=== PATIENT | female | born 1935 | race Caucasian/White ===

== ENCOUNTER 2020-10-30 12:40 | Observation (INO) | payer MEDICARE, OTHER, SELFPAY ==
[2020-10-30] VITALS (12 sets, daily range): BP systolic 94–116; BP diastolic 42–61; PULSE 65–77; RESP 14–27; TEMP 36.6–36.9; O2SAT 92–99; BMI 26.6
--- NOTE | ~2020-10-30 | US_ITS ---
EXAMINATION: US venous doppler [facility] DATE: 10/31/2020 10:50 INDICATION: Right-sided chest pain post fall. Unable to obtain pulmonary embolism protocol study due to contrast allergy. Elevated d-dimer. TECHNIQUE: Grayscale ultrasound images without and with compression and Doppler ultrasound images of the bilateral lower extremity veins were obtained. COMPARISON: None. FINDINGS: The visualized portions of right common femoral vein, profunda (deep) femoral vein, femoral vein, pop liteal vein, posterior tibial veins, peroneal veins, gastrocnemius vein and greater saphenous vein ou tflow are patent. The visualized portions of left common femoral vein, profunda femoral vein, femoral vein, popliteal v ein, posterior tibial veins, peroneal veins, gastrocnemius vein and greater saphenous vein outflow ar e patent. IMPRESSION: 1. No deep venous thrombosis in either lower limb. Reviewed, dictated and finalized at location A. A BAKER
--- NOTE | ~2020-10-30 | XR_ITS ---
EXAMINATION: XR knee RT min 4V DATE: 10/30/2020 13:32 INDICATION: Right knee pain and bruising post fall TECHNIQUE: Anteroposterior, 2 oblique and crosstable lateral views of the right knee were obtained COMPARISON: None. FINDINGS: Alignment is normal. No fracture. Chondrocalcinosis in all 3 compartments of the knee. Joint spaces appear otherwise unremarkable on nonweightbearing imaging. No joint effusion/layering lipohemarthrosi s. Multiple small round calcifications in the subcutaneous tissues anteromedial to the proximal tibia most likely representing phleboliths. Soft tissues are otherwise unremarkable. IMPRESSION: 1. No right knee joint effusion or acute osseous abnormality. 2. Prominent chondrocalcinosis throughout the right knee. Reviewed, dictated and finalized at location A. CHLORIDE OPERATOR
--- NOTE | ~2020-10-30 | NM_ITS ---
EXAMINATION: NM pulmonary perfusion EXAM DATE: 10/30/2020 16:21 INDICATION: contrast allergy, concerning for pulmonary embolism. Right-sided chest pain. TECHNIQUE: A perfusion lung scan was performed. The patient was injected with 4 mCi technetium 99m M AA and imaged. Modified PIOPED 2 criteria used for interpretation of perfusion without ventilation st udy (recent chest x-ray instead for comparison). Comparison is made to prior examination from 016. Correlation was made with chest x-ray same date. FINDINGS: No confluent consolidation on chest x-ray obtained same date. Scattered subsegmental defects are agai n seen, more pronounced than on previous exam but with same distribution. Air trapping was noted on p rior ventilation scan consistent with COPD. Indeterminate probability pulmonary embolism. IMPRESSION: Indeterminate scan. Reviewed, dictated and finalized at location B. COMPANY DRIVER IMPRESSION: Indeterminate scan.
--- NOTE | ~2020-10-30 | CT_ITS ---
EXAMINATION: CT brain wo con DATE: 10/30/2020 13:20 INDICATION: Fall. Head injury. Laceration to right forehead. TECHNIQUE: Computed tomography (CT) of the head was performed without intravenous contrast. The mA wa s adjusted according to patient size. Iterative reconstruction technique was employed. Exam dose: 60 5.33 mGy-cm total exam DLP. COMPARISON: 08/18/2010 CT brain FINDINGS: Bilateral vertebral artery, basilar artery and bilateral carotid siphon and right supraclin oid internal carotid artery calcifications. There is nonspecific diminished attenuation of the subcortical and periventricular cerebral white mat ter, likely due to chronic small vessel ischemic changes. No intracranial mass lesion or hemorrhage or cerebrovascular accident is evident. There is no midline shift or mass effect. Orbital contents are unremarkable. No subdural or epidural hematoma. No fracture or bone destruction of the cranial vault. The mastoid air cells and included paranasal sinuses are normally developed and aerated. IMPRESSION: Cerebral atherosclerosis and chronic small vessel ischemic changes of cerebral white mat ter No skull fracture or acute intracranial finding Reviewed, dictated and finalized at Location A. Reviewed, dictated and finalized at location A. OR CONTROL ASSISTANT IMPRESSION: Cerebral atherosclerosis and chronic small vessel ischemic changes of cerebral white matter No skull fracture or acute intracranial finding
--- NOTE | ~2020-10-30 | XR_ITS ---
XR hip BI 2V w AP pelvis DATE: 10/30/2020 13:32 INDICATION: Right pelvic and hip pain following fall. TECHNIQUE: AP pelvis. AP and lateral views of each hip. COMPARISON: None FINDINGS: Bilateral hip joint chondrocalcinosis is noted. Moderate osteopenia. No pelvic fracture or bone destruction is detected. The pubic symphysis and sacral iliac joints are n ormally aligned. No hip fracture or dislocation, avascular necrosis or bone destruction. IMPRESSION: Osteopenia No pelvic or hip fracture Bilateral hip joint chondrocalcinosis Reviewed, dictated and finalized at location A. LE BASS PLAYER
--- NOTE | ~2020-10-30 | XR_ITS ---
XR chest 2V DATE: 10/30/2020 13:32 INDICATION: Right-sided chest pain after fall TECHNIQUE: AP and lateral views COMPARISON: 09/10/2016 2 view chest 09/30/2017 CT chest FINDINGS: Cardiomegaly. Aortic calcification, ectasia and unfolding. There is mild infiltrate or atelectasis in the left mid and lower lung zones. The right hilum appears more prominent on the current examination compared to 09/10/2016 on the AP vi ew. No pleural effusion or pulmonary vascular congestion or pneumothorax. Surgical clips overlie the right upper quadrant, consistent with cholecystectomy. Diffuse osteopenia. There is dextroscoliosis of the thoracic spine. IMPRESSION: Mild infiltrate or atelectasis in the left mid and lower lung zones Cardiomegaly Aortic atherosclerosis Right hilum appears more prominent compared to 09/10/2016. Consider CT thorax with IV contrast materi al Reviewed, dictated and finalized at location A. RMATION SYSTEMS ARCHITECT IMPRESSION: Mild infiltrate or atelectasis in the left mid and lower lung zones Cardiomegaly Aortic atherosclerosis Right hilum appears more prominent compared to 09/10/2016. Consider CT thorax w ith IV contrast material
--- NOTE | ~2020-10-30 | CT_ITS ---
EXAMINATION: CT cervical spine wo con DATE: 10/30/2020 13:20 INDICATION: Fall. Head and neck injury. Laceration to right forehead. TECHNIQUE: Computed tomography (CT) of the cervical spine was performed without intravenous contrast. Automated exposure control and iterative reconstruction technique were employed. Exam dose: 183.39 mGy-cm total exam DLP. COMPARISON: None FINDINGS: There is diffuse osteopenia. C1 and C2 are normally aligned and the odontoid process is intact. No fracture or dislocation or lock ed facet or prevertebral soft tissue swelling. 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 There is severe degenerative disc disease at C5-6. There is minimal anterolisthesis and moderate degenerative disc disease at C6-7. Extensive degenerative changes of the apophyseal joints throughout the cervical spine. Prominent uncovertebral joint spurring bilaterally at C5-6. 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 Reviewed, dictated and finalized at location A. ARCHITECT MANAGER
--- NOTE | ~2020-10-30 | CT_ITS ---
EXAMINATION: CTA chest DATE: 11/01/2020 01:07 INDICATION: Elevated d-dimer, possible lung mass TECHNIQUE: Computed tomographic angiography (CTA) of the chest was performed without and with 100 mL Omnipque-350 intravenous contrast. Maximum intensity projection 3D-reconstructions of the aorta and o ther arteries were constructed by the technologist on a separate workstation. The dose-length product (DLP) was 528.97 mGy-cm. Automated exposure control and iterative reconstruction technique were empl oyed. COMPARISON: 09/30/2017 FINDINGS: There is no aneurysm or dissection of the thoracic aorta. Calcified atherosclerosis is note d. No pulmonary embolism is identified. There are small pleural effusions, left greater than right. N o pneumothorax is identified. Cardiomegaly is noted. No suspicious lung mass is identified. There is mild dependent atelectasis. Minimal opacities are noted in the lung apices. The gallbladder is surgic ally absent. 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 Punctate calcifications in otherwise normal appearing liver and spleen likely represent healed granulomatous disease. IMPRESSION: 1. No pulmonary embolism, aortic dissection, or aortic aneurysm. 2. Small pleural effusions, left greater than right. 3. Minimal airspace opacities in the lung apices, consistent with atelectasis versus pneumonia. 4. Cardiomegaly. 5. No suspicious correlate identified for the abnormality described on chest radiograph. Reviewed, dictated and finalized at location A. DRYING MACHINE OPERATOR IMPRESSION: 1. No pulmonary embolism, aortic dissection, or aortic aneurysm. 2. Small pleural effusions, left greater than right. 3. Minimal airspace opacities in the lung apices, consistent with atelectasis v ersus pneumonia. 4. Cardiomegaly. 5. No suspicious correlate identified for the abnormality described on chest ra diograph.
--- NOTE | 2020-10-30 12:46 | ED.FALL ---
HPI - Fall General Chief Complaint: Fall Stated Complaint: FALL Time Seen by Provider: 10/30/20 12:46 Source: patient and EMS Mode of arrival: EMS Limitations: no limitations History of Present Illness HPI Narrative: Patient is an 85-year-old female who presents for evaluation after a ground-level fall. Patient states that she was sitting at a table, when she stood up to walk into the living room, states that she suddenly fell to the ground. Patient states she does not think she tripped on anything. She states she may have passed out. She states she hit her head but did not lose consciousness. Patient with a large laceration to her right forehead. She is reporting dull, aching forehead pain. She is denying neck pain. She states her was home and found her on the ground, called EMS and they helped her to stand up. Patient currently is alert and oriented to person, place, and to time. She is reporting mild headache pain. She states that she feels somewhat foggy. She reports she has had a 3-day history of left-sided chest pain that is worse when she takes a deep breath. She denies nausea or vomiting. She denies vision changes. She denies weakness or numbness. Patient is not on any anticoagulation. Patient also reporting right knee pain and bruising. Related Data Home Medications Medication Instructions Recorded Confirmed alendronate 70 mg tablet See Rx Instructions .ROUTE .COMPLEX 10/04/19 doxycycline hyclate 10/30/20 Allergies Allergy/AdvReac Type Severity Reaction Status Date / Time adhesive Allergy Unknown BANDAIDS= Verified 10/30/20 13:03 RASH codeine Allergy Unknown vomiting Verified 10/30/20 13:03 Contrast Media Allergy Unknown hives Uncoded 10/30/20 13:03 Review of Systems Review of Systems: Narrative: CONSTITUTIONAL: Denies fever, chills, or sweats. EYES: Denies visual changes ENT: Denies rhinorrhea, congestion, sore throat, or otalgia. CARDIOVASCULAR: Reports left-sided chest pain RESPIRATORY: Denies cough or dyspnea. GASTROINTESTINAL: Denies abdominal pain, nausea, vomiting, or diarrhea. GENITOURINARY: Denies dysuria or hematuria. SKIN: Denies rash or itching. MUSCULOSKELETAL: Denies back pain, joint pain, or myalgia. NEUROLOGIC: Denies headache, numbness, or weakness. COUNT INCLUDES THE [facility] Past Medical History Medical History (Updated 12/30/20 @ 15:10 by Kaylan East MD) Dementia Depression HTN (hypertension) Osteoporosis Family History Family History Sibling Asthma Mother Family history of malignant neoplasm, Onset Age: 82 Family history of kidney disease, Onset Age: 82 Social History Social History Smoking status: Never smoker Alcohol intake: never Gender identity (if verbalized by the patient): Female Exam Narrative: Exam Narrative: Nursing note and vitals reviewed. CONSTITUTIONAL: The patient appears well-developed and well-nourished. No distress. HEAD: Normocephalic, right forehead laceration, through epidermis, no palpable skull depression, minimal active bleeding EYES: PERRL, EOMI, normal conjunctiva, anicteric EARS: External ears clear bilaterally, no hemotympanum MOUTH: OP clear, no erythema, exudates NECK: midline trachea, supple, FROM. No midline cervical spinal tenderness. CARDIOVASCULAR: Normal rate, regular rhythm, normal heart sounds and intact distal pulses. No murmurs, rubs, gallops. PULMONARY: Effort normal and breath sounds normal. No respiratory distress. The patient has no wheezes, rales, ronchi. No reproducible chest wall tenderness, crepitus or ecchymoses. ABDOMINAL: Soft. Nontender, nondistended. No palpable masses EXTREMITIES:: moving all extremities symmetrically. -RUE: No deformity. Normal ROM at shoulder, elbow, wrist, and hand. Sensation intact M/U/R. Pulse 2+. -LUE: No deformity. Normal ROM at shoulder, elbow, wrist, and hand.,
--- NOTE | 2020-10-30 13:02 | ECG_ITS ---
Measurements Intervals [place] Rate: 72 P: 29 WI: 179 QRS: -28 QRSD: 93 T: 55 QT: 387 QTc: 426 Interpretive Statements SINUS RHYTHM LEFT VENTRICULAR HYPERTROPHY WITH ST-T CHANGE BORDERLINE R WAVE PROGRESSION, ANTERIOR LEADS BORDERLINE T WAVE ABNORMALITY- LATERAL LEADS BORDERLINE ECG Electronically Signed On 10-30-2020 14:32:20 HEALTHCARE MARKET CONSULTANT by Viet Licea D.O.
[2020-10-30 13:13] LABS: Basophils Percent Auto 0.2 % (0.2-1.2); Eosinophils Absolute Auto 0.1 K/mm3 (0-0.3); Eosinophils Percent Auto 0.7 % (0-4.4); Hematocrit 34.2 % (37.0-47.0); Hemoglobin 11.4 g/dL (12.0-15.0); Immature Granulocyte Absolute 0.02 K/mm3 (0.00-0.031); Immature Granulocyte Percent A 0.2 % (0-0.5); Lymphocytes Absolute Auto 0.55 K/mm3 (0.9-3.2); Lymphocytes Percent Auto 6.6 % (18.3-44.2); Mean Corpuscular HGB Conc 33.3 g/dl (32-36); Mean Corpuscular Hemoglobin 27.7 pg (26-34); Mean Platelet Volume 11.7 fl (7.4-10.4); Monocytes Absolute Auto 0.7 K/mm3 (0.1-0.6); Monocytes Percent Auto 8.5 % (2.6-8.5); Neutrophils Percent Auto 83.8 % (45.5-73.1); Platelet Count Result 166 k/mm3 (150-375); Red Blood Count 4.12 M/mm3 (4.2-5.4); Red Cell Distribution Width 13.2 % (11.5-14.5); White Blood Count 8.4 K/mm3 (4.5-10.0)
[2020-10-30 13:25] LABS: Anion Gap 8 mmol/L (8-16); Blood Urea Nitrogen 28 mg/dL (7-17); Calcium 9.2 mg/dL (8.4-10.2); Carbon Dioxide 28 mmol/L (22-30); Chloride 101 mmol/L (98-107); Estimated CRCL calculation 29 ml/min; Estimated Glomerular Filt Rate 43; Glucose 153 mg/dL (65-105); Potassium 3.4 mmol/L (3.4-5.0); Sodium 137 mmol/L (137-145)
[2020-10-30 13:35] LABS: INR 0.9
[2020-10-30 13:36] LABS: Partial Thromboplastin Time 28.1 SECONDS (22.3-36.8); Troponin I 0.021 ng/mL (0.000-0.034)
[2020-10-30] MEDS: SODIUM CHLORIDE 0.9% IV 1,000 ML 999 ML IV CONT ×2 (13:46→15:36)
[2020-10-30] MEDS: ONDANSETRON INJ 4 MG/2 ML VIAL IV PUSH (13:46)
[2020-10-30] MEDS: TETANUS,DIPHTHERIA,AC PERTUSSIS ADULT (0.5 ML) BOOSTRIX IM (13:50)
[2020-10-30 14:06] LABS: Add Urine Microscopic? YES; Appearance Urine Clear (Clear); Bilirubin Urine Negative (Negative); Blood Urine Negative (Negative); Color Urine Yellow (Yellow); Glucose Urine UA Negative (Negative); Ketones Urine Negative (Negative); Leukocyte Esterase Ur 1+ LEU/UL (Negative); Mucus Urine Rare /lpf; Nitrate Urine Negative (Negative); Protein Urine 1+ mg/dL (Negative); RBC Urine 0-2 /hpf (0-2); Squamous Epithelial Cell Urine Few /hpf (Few)
[2020-10-30 14:11] LABS: D Dimer 2.72 ug/mL (<0.48)
--- NOTE | 2020-10-30 15:37 | PC.NURSE ---
pt refusing to take predinose. states it makes me feel like she is crawling on the ceiling, and i get mean Dr. Esat made aware.
--- NOTE | 2020-10-30 15:50 | PC.NURSE ---
Pt taken to nuclear med for lung study
--- NOTE | 2020-10-30 16:54 | ADMGEN ---
This patient, Alona Tejeda, was admitted to Medical Room 344-01. Patient/family oriented to hospital policies and general routines including ID bracelet, bed and alarms, visiting hours, pain management, procedures, bathroom and other care routines, personal items, smoking policy, room service/diet, and visiting hours. Information on how to activate the Rapid Response Team has been discussed. Patient/Family are encouraged to report perceived risks to care and to ask questions if they do not understand what they are told or what they should do.
[2020-10-30 18:48] LABS: Troponin I 0.019 ng/mL (0.000-0.034)
--- NOTE | 2020-10-30 20:30 | PM.IMHP ---
H&P: HPI History of Present Illness Date/Time: 10/31/20 20:30 Chief Complaint: Fall from ground level. Narrative: This is a very pleasant 85-year-old female with hypertension and chronic kidney disease who presented to the emergency department earlier today via EMS from home for evaluation after a fall from ground level. She was in her usual state of health when she woke this morning and not long after eating lunch she stood up to walk to the bathroom when she fell onto her right side, hitting her head and sustaining a laceration. There was no loss of consciousness or antecedent symptoms. In the emergency department she complained of a mild headache at the side of her laceration as well as some mild discomfort in the right knee. Her laceration was sutured and her brain CT showed no evidence of acute findings. With further questioning the patient mentioned intermittent left-sided pleuritic pain and there was some concern for possible pulmonary embolism as her D-dimer came back elevated. She has a contrast allergy and thus the emergency department physician wanted her admitted for premedication so we can obtain a chest CTA to rule out PE. She has no lower extremity edema, calf pain, or tenderness. No recent travel. No history of venous thromboembolism. The patient does not know what precipitated her fall today but as we chatted she mentions that over the last several years she has intermittent feelings of being pulled to one side or the other while ambulating although she denies overt vertigo. She ambulates unassisted and has been leland as of thus far to not have suffered any significant falls. She also mentions difficulties speaking, not necessarily slurred speech, more so slow and stuttering speech. Additional symptoms include intermittent horizontal diplopia, many times while watching television; right eyelid droop; and pill dysphagia. Some days she has hardly any of these symptoms ?and I feel back to my normal self.? Other days these symptoms last a majority of the day and seem to be worse with fatigue. She denies any significant muscle weakness however does note on occasion that she is so tired that she feels she cannot hold her head up straight. No significant shortness of breath however she will occasionally have dyspnea on minimal exertion. These symptoms cause her quite a bit of distress and she is tearful when discussing how it has affected her life. She has spoken with her doctor about it however it does not sound as though she has had a workup. No history of stroke, thyroid disease, or myasthenia gravis. Review of Systems Review of Systems: Narrative: Twelve systems were reviewed with pertinent positives and negatives as per HPI. No fever, chills, or sweats. No recent cold or flu symptoms. No exposure to those positive for COVID-19. She denies cough. No exertional chest pain or palpitations. She denies nausea, vomiting, and diarrhea. Reports recurrent urinary tract infections and frequently has mild dysuria. Occasional urinary incontinence. No paresthesias or focal weakness. Except as documented, all other systems were reviewed and are negative. [facility] Past Medical History Medical History (Updated 10/31/20 @ 00:50 by Mayra Rebollar PA-C) Chronic kidney disease, stage 3 Baseline creatinine is around 1.10. Depression Gastroesophageal reflux disease Hiatal hernia Hyperlipidemia Hypertension Mild dementia Osteoarthritis Osteoporosis Shingles (~2005) Surgical History Surgical History (Updated 10/31/20 @ 00:41 by Mayra Rebollar PA-C) History of bilateral breast biopsy History of cholecystectomy History of hemorrhoidectomy History of tonsillectomy Family History Family History Sibling Asthma Mother Family history of malignant neoplasm, Onset Age: 82 Family history of kidney disease, Onset Age: 82 Social History Social History (Updated
[2020-10-31] VITALS (15 sets, daily range): BP systolic 133–172; BP diastolic 57–83; PULSE 65–78; RESP 14–18; TEMP 36.4–36.6; O2SAT 95–100
--- NOTE | 2020-10-31 01:00 | ECHO_ITS ---
Patient Info Name: Alona Tejeda Age: 85 years : 1935 Gender: Female Ht: 65 in Wt: 159 lbs BSA: 1.83 m2 HR: 66 bpm BP: 156 / 65 mmHg Heart Rhythm: Sinus Rhythm Technical Quality: Fair Exam Date: 10/31/2020 9:44 AM Exam Location: [facility] Pulmonary Exam Room: 344 Patient Status: Outpatient Admit Date: 10/30/2020 Staff Ordering Physician: Mayra Rebollar PA-C Injection Molding Machine Setter: Genevieve Rogers RDCS Attending Provider: Chris Huntley MD Referring Physician: Smooth ABERNATHY; Exam Type: CA echo doppler color flow Study Info Indications - CARDIOMEGALY Complete two-dimensional, color flow and Doppler transthoracic echocardiogram is performed. Summary 1. Complete two-dimensional, color flow and Doppler transthoracic echocardiogram is performed. 2. Left ventricular systolic function is normal, estimated at 60-65%. 3. There is mildly increased left ventricular wall thickness. 4. The left ventricular diastolic function is grade I diastolic dysfunction. 5. Left atrial chamber dimension is mildly enlarged. 6. There is mild aortic valve sclerosis. 7. There is moderate mitral valve calcification. 8. There is mild mitral valve regurgitation. 9. There is mild tricuspid valve regurgitation. 10. No pulmonary hypertension, estimated pulmonary arterial systolic pressure is 37 mmHg. 11. There is mild pulmonic regurgitation. Left Ventricle Left ventricular chamber dimension is normal. Left ventricular systolic function is normal, estimated at 60-65%. There is mildly increased left ventricular wall thickness. Left ventricular septal wall motion is normal. The left ventricular diastolic function is grade I diastolic dysfunction. Right Ventricle Right ventricular chamber dimension is normal. Right ventricular systolic function is normal. Left Atria Left atrial chamber dimension is mildly enlarged. Right Atria Right atrial chamber dimension is normal. Atrial Septum Intact interatrial septum visualized by color flow imaging. Aortic Valve The aortic valve is trileaflet. There is mild aortic valve sclerosis. There is no aortic valve stenosis. There is no aortic valve regurgitation. Pulmonic Valve The pulmonic valve is normal. There is no pulmonic valve stenosis. There is mild pulmonic regurgitation. Mitral Valve There is no mitral valve stenosis. There is mild mitral valve regurgitation. There is moderate mitral valve calcification. Tricuspid Valve The tricuspid valve leaflets are normal. There is no significant tricuspid valve stenosis. There is mild tricuspid valve regurgitation. No pulmonary hypertension, estimated pulmonary arterial systolic pressure is 37 mmHg. Pericardium/Pleural The pericardium appears normal. There is no pericardial effusion. Inferior Vena Cava Normal inferior vena cava with >50% collapse upon inspiration consistent with normal right atrial pressure, 5 mmHg. Aorta The aortic root size at the sinus of Valsalva is normal. The prox ascending aorta size is normal. Left Ventricular Outflow Tract Name Value Normal LVOT 2D LVOT Diameter 2.0 cm LVOT Doppler
[2020-10-31] MEDS: predniSONE 40 MG, predniSONE 10 MG 50 MG PO ×3 (11:25→22:20)
--- NOTE | 2020-10-31 12:15 | WPDNEURCNPN ---
Assessment and Plan Assessment and plan (1) Abnormal chest x-ray: Code(s): R93.89 - Abnormal findings on diagnostic imaging of other specified body structures Status: Acute (2) Neurological symptoms: Code(s): R29.90 - Unspecified symptoms and signs involving the nervous system Status: Acute (3) Musculoskeletal chest pain: Code(s): R07.89 - Other chest pain Status: Acute (4) Elevated d-dimer: Code(s): R79.89 - Other specified abnormal findings of blood chemistry Status: Acute (5) Fall from ground level: Code(s): W18.30XA - Fall on same level, unspecified, initial encounter Status: Acute (6) Syncope: Qualifiers: Syncope type: unspecified Qualified Code(s): R55 - Syncope and collapse Code(s): R55 - Syncope and collapse Status: Acute (7) Laceration of head: Qualifiers: Encounter type: initial encounter Foreign body presence: without foreign body Location of open wound of head: other part of head Qualified Code(s): S01.81XA - Laceration without foreign body of other part of head, initial encounter Code(s): S01.91XA - Laceration without foreign body of unspecified part of head, initial encounter Status: Acute (8) Dementia: Qualifiers: Dementia type: Alzheimer's disease Alzheimer's disease onset: early-onset Dementia behavioral disturbance: without behavioral disturbance Qualified Code(s): G30.0 - Alzheimer's disease with early onset; F02.80 - Dementia in other diseases classified elsewhere without behavioral disturbance Code(s): F03.90 - Unspecified dementia without behavioral disturbance Status: Acute (9) Osteoporosis: Qualifiers: Osteoporosis type: age-related Presence of current pathological fracture: unspecified Qualified Code(s): M81.0 - Age-related osteoporosis without current pathological fracture Code(s): M81.0 - Age-related osteoporosis without current pathological fracture Status: Acute (10) HTN (hypertension): Qualifiers: Hypertension type: essential hypertension Qualified Code(s): I10 - Essential (primary) hypertension Code(s): I10 - Essential (primary) hypertension Status: Acute (11) Depression: Qualifiers: Depression Type: major depressive disorder Major depression recurrence: recurrent Active/Remission status: currently active Major depression episode severity: mild Qualified Code(s): F33.0 - Major depressive disorder, recurrent, mild Code(s): F32.9 - Major depressive disorder, single episode, unspecified Status: Acute Additional Plan treatment as planned Consult date: 10/31/20 Time Seen: 12:00 HPI: Alona Tejeda is a 85 year old female 85 years old lady has been admitted to the hospital with the complaints of fall from ground level when she was in her usual state of health, she woke up in the morning and not long after eating her lunch she stood up to walk to the bathroom when she fell onto her right side hitting her head and sustaining a laceration without becoming unconscious in the emergency room she complained of mild headache the side of her laceration and mild discomfort in the right knee. Less duration was sutured, CT scan of the head was negative, though she complained of intermittent left-sided pleuritic pain and her D-dimer came back elevated CTA could not be done because of her allergies to the dye so she needed to be medicated,. At this stage she mentions over the last several years she has intermittent feeling of being pulled to 1 side or other while ambulating without any vertigo though she has been ambulating unassisted and has not fallen as yet she also complained of mild difficulties in his speech additionally intermittent horizontal diplopia while watching TV but no associated muscle weakness or any other symptomatology. She does have ongoing history of 1. Chronic renal disease s
--- NOTE | 2020-10-31 14:38 | PM.IMPN ---
Progress Note: A&P Assessment and Plan (1) Fall from ground level: Code(s): W18.30XA - Fall on same level, unspecified, initial encounter Status: Acute Assessment and Plan: 10/31/20 14:38 Patient is 85-year-old female fell at home while trying to get up from sitting position patient landed on right side of her forehead and has a laceration, patient does suddenly fell denies any mechanical fall and denies any associated symptoms chest pain palpitation or dizziness prior fall, however patient does complaint of left-sided chest pain for last 3 days, worse with deep breath more like pleuritic pain, although patient does not have significant risk factor for PE however her D-dimer is elevated 2.72 to further evaluate patient needs CTA of the chest however patient is allergic to contact, patient has agreed to be pretreated before doing CTA tomorrow will follow, patient is a poor historian, will have a PT OT evaluate the and further recommendation to follow (2) Laceration of head: Qualifiers: Encounter type: initial encounter Foreign body presence: without foreign body Location of open wound of head: other part of head Qualified Code(s): S01.81XA - Laceration without foreign body of other part of head, initial encounter Code(s): S01.91XA - Laceration without foreign body of unspecified part of head, initial encounter Status: Acute Assessment and Plan: Patient has a laceration on right side of the for was sutured in ER, (3) Elevated d-dimer: Code(s): R79.89 - Other specified abnormal findings of blood chemistry Status: Acute Assessment and Plan: Patient with elevated D-dimer and complaint of pleuritic chest will do the CTA of the chest further evaluate (4) Musculoskeletal chest pain: Code(s): R07.89 - Other chest pain Status: Acute Assessment and Plan: Status post fall most likely musculoskeletal chest (5) Neurological symptoms: Code(s): R29.90 - Unspecified symptoms and signs involving the nervous system Status: Acute Assessment and Plan: Elderly clinically stable at the present (6) Abnormal chest x-ray: Code(s): R93.89 - Abnormal findings on diagnostic imaging of other specified body structures Status: Acute Assessment and Plan: Right hilum a patient large will do the CTA of the chest (7) Chronic kidney disease, stage 3: Code(s): N18.30 - Chronic kidney disease, stage 3 unspecified Status: Inactive Assessment and Plan: Acute on chronic most likely secondary dehydration will gently hydrate the patient (8) Hypertension: Code(s): I10 - Essential (primary) hypertension Status: Inactive (9) Depression: Qualifiers: Active/Remission status: currently active Depression Type: major depressive disorder Major depression episode severity: mild Major depression recurrence: recurrent Qualified Code(s): F33.0 - Major depressive disorder, recurrent, mild Code(s): F32.9 - Major depressive disorder, single episode, unspecified Status: Acute Assessment and Plan: Will continue home regimen (10) Mild dementia: Code(s): F03.90 - Unspecified dementia without behavioral disturbance Status: Inactive Assessment and Plan: Clinically stable. Additional Plan The patient denies antecedent symptoms prior to her fall and she is not certain as to how or why she fell. She is not technically orthostatic however blood pressures have been soft. Because of this I am going to hold her antihypertensives. She denies loss of consciousness and I was told that it was a witnessed fall. She sustained a right forehead laceration which has since been sutured. Fall precautions will be initiated. PT/OT consulted given reports of intermittent gait disturbances. A D-dimer was drawn as she reported left-sided pleuritic pain however it is clearly reproducible, musculoskeletal p
[2020-10-31] MEDS: DONEPEZIL HCL 10 MG TABLET PO (17:53)
[2020-10-31] MEDS: SERTRALINE HCL 50 MG TABLET PO (22:20)
[2020-10-31] MEDS: diphenhydrAMINE HCl INJ 50 MG/ML VIAL IV PUSH (22:20)
[2020-11-01] VITALS (12 sets, daily range): BP systolic 132–177; BP diastolic 52–79; PULSE 58–83; RESP 14–20; TEMP 36.1–36.4; O2SAT 96–98
--- NOTE | 2020-11-01 00:50 | PC.NURSE ---
Patient left room via wheelchair to CT
--- NOTE | 2020-11-01 01:12 | PC.NURSE ---
Patient returned to room from CT via wheelchair
[2020-11-01 09:56] LABS: Hematocrit 31.9 % (37.0-47.0); Hemoglobin 10.6 g/dL (12.0-15.0); Mean Corpuscular HGB Conc 33.2 g/dl (32-36); Mean Corpuscular Hemoglobin 27.5 pg (26-34); Mean Corpuscular Volume 82.6 fl (80-100); Mean Platelet Volume 11.4 fl (7.4-10.4); Platelet Count Result 180 k/mm3 (150-375); Red Blood Count 3.86 M/mm3 (4.2-5.4); White Blood Count 8.2 K/mm3 (4.5-10.0)
[2020-11-01 10:09] LABS: Potassium 3.7 mmol/L (3.4-5.0)
[2020-11-01 10:12] LABS: Blood Urea Nitrogen 29 mg/dL (7-17)
[2020-11-01 10:13] LABS: Anion Gap 10 mmol/L (8-16); Calcium 9.3 mg/dL (8.4-10.2); Carbon Dioxide 25 mmol/L (22-30); Chloride 104 mmol/L (98-107); Estimated CRCL calculation 31 ml/min; Estimated Glomerular Filt Rate 47; Glucose 184 mg/dL (65-105); Sodium 139 mmol/L (137-145)
--- NOTE | 2020-11-01 13:37 | PM.IMPN ---
Progress Note: A&P Assessment and Plan (1) Fall from ground level: Code(s): W18.30XA - Fall on same level, unspecified, initial encounter Status: Acute Assessment and Plan: 11/01/20 13:37 Patient is 85-year-old female fell at home while trying to get up from sitting position patient landed on right side of her forehead and has a laceration, patient suddenly fell denies any mechanical fall and denies any associated symptoms chest pain palpitation or dizziness prior to fall, however patient does complaint of left-sided chest pain for last 3 days prior to coming to the ER, worse with deep breath more like pleuritic pain, although patient does not have significant risk factor for PE however her D-dimer is elevated 2.72 to further evaluate patient had CTA of the chest however patient is allergic to contrast, patient has agreed to be pretreated before doing CTA, which was done on 10/31 pending result, patient is a poor historian, today appears more confused unable to provide any review of systems, will have a PT OT evaluate the and further recommendation to follow (2) Laceration of head: Qualifiers: Encounter type: initial encounter Foreign body presence: without foreign body Location of open wound of head: other part of head Qualified Code(s): S01.81XA - Laceration without foreign body of other part of head, initial encounter Code(s): S01.91XA - Laceration without foreign body of unspecified part of head, initial encounter Status: Acute Assessment and Plan: Patient has a laceration on right side of the for was sutured in ER, (3) Elevated d-dimer: Code(s): R79.89 - Other specified abnormal findings of blood chemistry Status: Acute Assessment and Plan: Patient with elevated D-dimer and complaint of pleuritic chest will do the CTA of the chest further evaluate (4) Musculoskeletal chest pain: Code(s): R07.89 - Other chest pain Status: Acute Assessment and Plan: Status post fall most likely musculoskeletal chest (5) Neurological symptoms: Code(s): R29.90 - Unspecified symptoms and signs involving the nervous system Status: Acute Assessment and Plan: Elderly clinically stable at the present (6) Abnormal chest x-ray: Code(s): R93.89 - Abnormal findings on diagnostic imaging of other specified body structures Status: Acute Assessment and Plan: Right hilum a patient large will do the CTA of the chest (7) Chronic kidney disease, stage 3: Code(s): N18.30 - Chronic kidney disease, stage 3 unspecified Status: Inactive Assessment and Plan: Acute on chronic most likely secondary dehydration will gently hydrate the patient (8) Hypertension: Code(s): I10 - Essential (primary) hypertension Status: Inactive (9) Depression: Qualifiers: Depression Type: major depressive disorder Major depression recurrence: recurrent Active/Remission status: currently active Major depression episode severity: mild Qualified Code(s): F33.0 - Major depressive disorder, recurrent, mild Code(s): F32.9 - Major depressive disorder, single episode, unspecified Status: Acute Assessment and Plan: Will continue home regimen (10) Mild dementia: Code(s): F03.90 - Unspecified dementia without behavioral disturbance Status: Inactive Assessment and Plan: Clinically stable. Subjective Date/time seen: 11/01/20 13:37 Patient is 85-year-old female fell at home while trying to get up from sitting position patient landed on right side of her forehead and has a laceration, patient suddenly fell denies any mechanical fall and denies any associated symptoms chest pain palpitation or dizziness prior to fall, however patient does complaint of left-sided chest pain for last 3 days prior to coming to the ER, worse with deep breath more like pleuritic pain, although patient does not have
[2020-11-01] MEDS: DONEPEZIL HCL 10 MG TABLET PO (16:40)
[2020-11-01] MEDS: SERTRALINE HCL 50 MG TABLET PO (20:00)
[2020-11-02] VITALS: PULSE 65
[2020-11-02 04:00] VITALS: PULSE 65
[2020-11-02 05:35] VITALS: BP 156/70; PULSE 66; RESP 16; TEMP 36.3; O2SAT 97
[2020-11-02 05:46] LABS: Hematocrit 31.9 % (37.0-47.0); Hemoglobin 10.4 g/dL (12.0-15.0); Mean Corpuscular HGB Conc 32.6 g/dl (32-36); Mean Corpuscular Volume 82.9 fl (80-100); Platelet Count Result 190 k/mm3 (150-375); Red Blood Count 3.85 M/mm3 (4.2-5.4); Red Cell Distribution Width 13.2 % (11.5-14.5); White Blood Count 9.2 K/mm3 (4.5-10.0)
[2020-11-02 06:15] LABS: Anion Gap 5 mmol/L (8-16); Blood Urea Nitrogen 32 mg/dL (7-17); Carbon Dioxide 29 mmol/L (22-30); Chloride 107 mmol/L (98-107); Estimated CRCL calculation 29 ml/min; Estimated Glomerular Filt Rate 43; Glucose 90 mg/dL (65-105); Potassium 2.9 mmol/L (3.4-5.0); Sodium 141 mmol/L (137-145)
[2020-11-02 08:00] VITALS: BP 130/78; PULSE 61
[2020-11-02 08:46] VITALS: BP 134/80
[2020-11-02 08:47] VITALS: BP 138/86
--- NOTE | 2020-11-02 11:10 | PM.DS ---
DS: Admitting Diagnosis Admitting Diagnosis Admitting Diagnosis: Fall from ground level. DS: Summary Hospital Course Reason for hospitalization: Chief Complaint: Fall from ground level. Narrative: This is a very pleasant 85-year-old female with hypertension and chronic kidney disease who presented to the emergency department earlier today via EMS from home for evaluation after a fall from ground level. She was in her usual state of health when she woke this morning and not long after eating lunch she stood up to walk to the bathroom when she fell onto her right side, hitting her head and sustaining a laceration. There was no loss of consciousness or antecedent symptoms. In the emergency department she complained of a mild headache at the side of her laceration as well as some mild discomfort in the right knee. Her laceration was sutured and her brain CT showed no evidence of acute findings. With further questioning the patient mentioned intermittent left-sided pleuritic pain and there was some concern for possible pulmonary embolism as her D-dimer came back elevated. She has a contrast allergy and thus the emergency department physician wanted her admitted for premedication so we can obtain a chest CTA to rule out PE. She has no lower extremity edema, calf pain, or tenderness. No recent travel. No history of venous thromboembolism. The patient does not know what precipitated her fall today but as we chatted she mentions that over the last several years she has intermittent feelings of being pulled to one side or the other while ambulating although she denies overt vertigo. She ambulates unassisted and has been leland as of thus far to not have suffered any significant falls. She also mentions difficulties speaking, not necessarily slurred speech, more so slow and stuttering speech. Additional symptoms include intermittent horizontal diplopia, many times while watching television; right eyelid droop; and pill dysphagia. Some days she has hardly any of these symptoms ?and I feel back to my normal self.? Other days these symptoms last a majority of the day and seem to be worse with fatigue. She denies any significant muscle weakness however does note on occasion that she is so tired that she feels she cannot hold her head up straight. No significant shortness of breath however she will occasionally have dyspnea on minimal exertion. These symptoms cause her quite a bit of distress and she is tearful when discussing how it has affected her life. She has spoken with her doctor about it however it does not sound as though she has had a workup. No history of stroke, thyroid disease, or myasthenia gravis. Hospital Course: Patient is 85-year-old female fell at home while trying to get up from sitting position patient landed on right side of her forehead and has a laceration, patient suddenly fell denies any mechanical fall and denies any associated symptoms chest pain palpitation or dizziness prior to fall, however patient does complaint of left-sided chest pain for last 3 days prior to coming to the ER, worse with deep breath more like pleuritic pain, although patient does not have significant risk factor for PE however her D-dimer is elevated 2.72 to further evaluate patient had CTA of the chest however patient is allergic to contrast, patient has agreed to be pretreated before doing CTA, which was done on 10/31 pending result, patient is a poor historian, on 10/31 appeared more confused unable to provide any review of systems, have a PT OT evaluate the and further recommendation to follow. today patient is more alert and cooperative, clinically stable, will discharge patient today. Status at Discharge Functional status at discharge: uses cane/walker Overall status at discharge: patient is back to baseline Time Spent with Patient Time attestation: Total time spent providing and/or coordinating discharge services: Patient was seen and examined at the time of the discharg
== END 2020-11-02 12:45 | disposition home or self-care (01) ==
LOC: ANHED 15:10 → ANH3MED 10-31 01:21
PROVIDERS: Admitting Provider Internal Medicine; Emergency Provider Emergency Medicine; PCP Emergency Medicine; Visit Provider Family Medicine
DX: S01.81XA Laceration without foreign body of other part of head, initial encounter (principal); R55 Syncope and collapse; M25.561 Pain in right knee; W18.39XA Other fall on same level, initial encounter; R07.89 Other chest pain; R93.89 Abnormal findings on diagnostic imaging of other specified body structures; R79.1 Abnormal coagulation profile; R29.90 Unspecified symptoms and signs involving the nervous system; I12.9 Hypertensive chronic kidney disease with stage 1 through stage 4 chronic kidney disease, or unspecified chronic kidney disease; N18.30 Chronic kidney disease, stage 3 unspecified; M81.0 Age-related osteoporosis without current pathological fracture; F32.9 Major depressive disorder, single episode, unspecified; E78.5 Hyperlipidemia, unspecified; F03.90 Unspecified dementia, unspecified severity, without behavioral disturbance, psychotic disturbance, mood disturbance, and anxiety; K21.9 Gastro-esophageal reflux disease without esophagitis; I34.0 Nonrheumatic mitral (valve) insufficiency; I36.1 Nonrheumatic tricuspid (valve) insufficiency; K44.9 Diaphragmatic hernia without obstruction or gangrene; Z79.899 Other long term (current) drug therapy; Z23 Encounter for immunization
CPT/HCPCS: 12011; 36415; 70450; 71046; 71275; 72125; 73521; 73564; 78580; 80048; 81001; 83735; 84484; 85025; 85027; 85380; 85610; 85730; 87086; 87088; 90471; 90715; 93005; 93306; 93970; 96361; 96365; 96375; 97110; 97161; 97165; 97530; 99285; A9270; A9540; G0378; J0131; J1200; J2405; J7030; J7512; Q9967